=== PATIENT | female | born 1970 | race African-American/Black ===

== ENCOUNTER 2016-04-18 05:00 | Emergency (ER) | payer SELFPAY ==
[~2016-04-18] VITALS: Ht 172.7 cm; Wt 73.5 kg
[2016-04-18 05:12] VITALS: BP 133/87
--- NOTE | 2016-04-18 05:47 | PHYS DOC ---
Past Medical History Past Medical History: Other Additional Past Medical Histor: LUPUS Past Surgical History: Hysterectomy Alcohol Use: Occasionally Drug Use: Marijuana Adult General Chief Complaint Chief Complaint: LOWER EXT PAIN HPI HPI 45-year-old female presents stating she has migratory knots in her lower extremities. She states these knots of been coming and going over the last several days. She states she doesn't have any this morning but wanted to get checked. She denies any chest pain shortness of breath or dyspnea on exertion. She states it seems like she's had more back pain than usual. She is not injured her legs in any way. She's not been on any recent long trips. She states she does not use hormones. [] Review of Systems Review of Systems Constitutional: Denies fever or chills [] Eyes: Denies change in visual acuity, redness, or eye pain [] HENT: Denies nasal congestion or sore throat [] Respiratory: Denies cough or shortness of breath [] Cardiovascular: No additional information not addressed in HPI [] GI: Denies abdominal pain, nausea, vomiting, bloody stools or diarrhea [] : Denies dysuria or hematuria [] Musculoskeletal: Per history of present illness [] Integument: Denies rash or skin lesions [] Neurologic: Denies headache, focal weakness or sensory changes [] Endocrine: Denies polyuria or polydipsia [] Allergies Allergies Allergies Coded Allergies Type Severity Reaction Last Updated Verified No Known Drug Allergies 04/18/16 No Physical Exam Physical Exam Constitutional: Well developed, well nourished, no acute distress, she was asleep on my arrival to the room, non-toxic appearance. [] HENT: Normocephalic, atraumatic, bilateral external ears normal, oropharynx moist, no oral exudates, nose normal. [] Eyes: PERRLA, EOMI, conjunctiva normal, no discharge. [] Neck: Normal range of motion, no tenderness, supple, no stridor. [] Cardiovascular:Heart rate regular rhythm, no murmur [] Lungs & Thorax: Bilateral breath sounds clear to auscultation [] Abdomen: Bowel sounds normal, soft, no tenderness, no masses, no pulsatile masses. [] Skin: Warm, dry, no erythema, no rash. [] Back: No tenderness, no CVA tenderness. [] Extremities: No tenderness, no cyanosis, no clubbing, ROM intact, no edema, negative Homans bilaterally. [] Neurologic: Alert and oriented X 3, normal motor function, normal sensory function, no focal deficits noted. [] Psychologic: Affect normal, judgement normal, mood normal. [] Current Patient Data Vital Signs Vital Signs Date Time Temp Pulse Resp B/P Pulse Ox O2 Delivery O2 Flow Rate FiO2 04/18/16 05:12 97.8 105 20 133/87 98 Room Air 97.8 EKG EKG [] Radiology/Procedures Radiology/Procedures [] Course & Med Decision Making Course & Med Decision Making Pertinent Labs and Imaging studies reviewed. (See chart for details) [] Dragon Disclaimer Dragon Disclaimer This electronic medical record was generated, in whole or in part, using a voice recognition dictation system. Departure Departure Impression: Primary Impression: Lower extremity pain Disposition: HOME, SELF-CARE Condition: STABLE Referrals: NO PCP (PCP) Patient Instructions: Musculoskeletal Pain Additional Instructions: Follow with your family doctor this week for recheck. Return to the emergency department with any new or concerning symptoms Problem Qualifiers Primary Impression: Lower extremity pain Laterality: bilateral Qualified Code: M79.604 - Pain in right leg OZZY LINDER DO Apr 18, 2016 05:47
== END 2016-04-18 05:56 | disposition home or self-care (01) ==
LOC: ER 05:00
DX: M79.604 Pain in right leg (principal); M32.9 Systemic lupus erythematosus, unspecified; F12.10 Cannabis abuse, uncomplicated; Z90.710 Acquired absence of both cervix and uterus
CPT/HCPCS: 99281